=== PATIENT | male | born 1980 | race Caucasian/White ===

== ENCOUNTER 2018-12-17 08:12 | Inpatient (IN) | payer OTHER ==
[~2018-12-17] VITALS: Ht 177.8 cm; Wt 76.2 kg
--- NOTE | 2018-12-17 21:21 | NUR ---
PRE-ADMISSION NOTE Pt was seen in the intake office. Pt is intoxicated and not exhibiting any s/s of withdrawal. Pt has alcoholic odor on his breath. Pt is accompanied by his sister and his long time friend. Pt's V/S are WNL. Pt's has a steady gait. Pt is acceptable for admission to [facility].
[2018-12-17] MEDS ORDERED: SRC ALCOHOL WITHDRAWAL ADMITTING PROTOCOL XX PRN (22:00)
[2018-12-17] MEDS ORDERED: IBUPROFEN 600 MG TABLET PO PRN (22:00)
[2018-12-17] MEDS ORDERED: LORAZEPAM 0.5 MG TABLET PO PRN ×2 (22:00)
[2018-12-17] MEDS ORDERED: SRC BENZO WITHDRAWAL ADMITTING PROTOCOL XX PRN (22:00)
[2018-12-17] MEDS ORDERED: LORAZEPAM 2 MG/1 ML VIAL IM PRN (22:00)
[2018-12-17] MEDS ORDERED: ONDANSETRON 4 MG/2 ML VIAL IM PRN (22:00)
[2018-12-17] MEDS ORDERED: CLONIDINE HCL 0.1 MG TABLET PO PRN (22:00)
[2018-12-17] MEDS ORDERED: THIAMINE HCL 200 MG/2 ML VIAL IM ONE (22:00)
[2018-12-17] MEDS ORDERED: LOPERAMIDE HCL 2 MG CAPSULE PO PRN ×2 (22:00)
[2018-12-17] MEDS ORDERED: ONDANSETRON ODT 4 MG TAB.RAPDIS SL PRN (22:00)
[2018-12-17] MEDS ORDERED: HYDROXYZINE PAMOATE 25 MG CAPSULE PO PRN (22:00)
[2018-12-17] MEDS ORDERED: MAGNESIUM HYDROXIDE 30 ML LIQUID UDC PO PRN (22:00)
[2018-12-17] MEDS ORDERED: MAG HYDROX/AL HYDROX/SIMETH 30 ML LIQUID UDC PO PRN (22:00)
[2018-12-17] MEDS ORDERED: MIRALAX 17 GM POWD.PACK PO PRN (22:00)
[2018-12-17] MEDS ORDERED: diphenhydrAMINE 50 MG CAPSULE PO PRN (22:00)
--- NOTE | 2018-12-17 22:23 | NUR ---
ADMISSION NOTE Pt is a 38 y/o male who is being admitted for medically supervised withdrawal from ETOH and Benzodiazepines. Pt is intoxicated and currently not experiencing any s/s of withdrawal. Pt has an odor of alcohol on his breath. His speech is tangential, rapid, and slurred. He is also flushed and has avoidant eye contact. Pt is A/O to person, place, time, and purpose. He states that withdrawal symptoms typically include irritability, anger, and anxiety. He denies all other symptoms. He denies any cardiac complications due to withdrawal. He denies ever having a withdrawal induced seizure. He, however, does state that he has several blackouts while drinking. The last one in October of 2018. Pts substance use is as follows: 1. ETOH (Beer): 20 beers daily for the past 10 days. His last drink was on 12/17/18 @ 1900. He finished 20 beers throughout the course of the day. His first drink was 15 yrs ago. 2. Benzodiazepines (Xanax): 2mg as needed for the past yr. His last use was 12/17/18 @ 1700 of 2mg. He first began using 1 yr ago. He states that he is seeking treatment today because he is on the verge of losing everything. Im going to lose everything if I dont stop drinking. Im killing my parents and my job has threatened to fire me. He states I dont know why I torture myself this way. Pt states that he uses drinking as a coping mechanism. It used to be fun, but now it is not. It has become a crutch. This is the first time that he has attempted to go through treatment. I thought I could do this on my own, but I realize I cant. He doesnt believe he needs to stop using Xanax because he, doesnt use it very often. He states that he is willing to do whatever it takes to stop drinking and maintain his sobriety. I want to be a better person and good example for my kids. Pt states that he has a home AA group, but believes his old sponsor has relapsed himself. He also states that he wants to go treatment after detoxing. I want to do an outpatient program where I can still maintain my job. He was brought to detox by his sister and his longtime friend. Pt states that he has a good support system. My family knows what to do, my older brother battled and overcame addiction. V/S: P:82, RR:18, SPO2:97, BP:1356/81. Pt denies pain. HR is strong and regular. Respirations are unlabored and even. Lung sounds are clear. Skin is intact. NKA. He is 510 and 168lbs. He follows a regular diet at home. He is a former smoker who quit 15 yrs ago. He has medical health h/o a concussion in August of 2018. He also had Angina in 2014 and was hospitalized. Pt has a mental health h/o Anxiety and Depression. Pt denies ever having any S/I or H/I. Pt doesnt currently have a PCP or psychiatrist. He was educated on the plan of care including detox, group and individual therapy sessions, and discharge planning. He was encouraged to be open and honest with the staff regarding how he is feeling and what his symptoms are. He was also given verbal support for his choice in recovery.
[2018-12-17] MEDS ORDERED: ALPR2TAB7 PO (22:45)
[2018-12-17 23:39] LABS: *AMPHETAMINE, URINE NEGATIVE (NEGATIVE); *BARBITURATE, URINE NEGATIVE (NEGATIVE); *CANNABINOID, URINE NEGATIVE (NEGATIVE); *COCCAINE, URINE NEGATIVE (NEGATIVE); *OPIATE, URINE NEGATIVE (NEGATIVE); *PHENCYCLIDINE SCREEN,URINE NEGATIVE (NEGATIVE)
[2018-12-18] VITALS: BP 124/79
--- NOTE | 2018-12-18 | NUR ---
CIWA DEFERRED Pt is in bed w/ his eyes closed. Pt's respirations are unlabored and even.
[2018-12-18 00:13] LABS: BASOPHILS % (AUTO) 1.3 % (0.0-2.0); EOSINOPHILS # (AUTO) 0.1 K/uL (0.0-0.7); EOSINOPHILS % (AUTO) 3.1 % (0.0-7.0); HEMATOCRIT 41.5 % (36.7-47.1); HEMOGLOBIN 14.4 g/dL (12.5-16.3); LYMPHOCYTES # (AUTO) 1.7 K/uL (20.0-40.0); LYMPHOCYTES % (AUTO) 47.1 % (20.5-51.5); MEAN CORPUSCULAR HEMOGLOBIN 29.6 uug (23.8-33.4); MEAN CORPUSCULAR HGB CONC 35 g/dL (32.5-36.3); MEAN CORPUSCULAR VOLUME 85.3 fL (73.0-96.2); MONOCYTES # (AUTO) 0.3 K/uL (2.0-10.0); MONOCYTES % (AUTO) 8.7 % (0.0-11.0); NEUTROPHILS # (AUTO) 1.5 K/uL (1.8-8.9); NEUTROPHILS % (AUTO) 39.8 % (38.5-71.5); PLATELET COUNT (AUTO) 131 K/uL (152-348); RED BLOOD CELL COUNT(AUTO) 4.86 MIL/uL (4.06-5.63); WHITE BLOOD COUNT (AUTO) 3.7 K/uL (3.6-10.2)
[2018-12-18 00:23] LABS: BILIRUBIN,TOTAL 0.5 mg/dL (0.2-1.0); CREATININE 1.2 mg/dL (0.6-1.3); MAGNESIUM 1.8 mg/dL (1.8-2.4); POTASSIUM 2.9 mmol/L (3.5-5.1); TOTAL PROTEIN, SERUM 7.4 g/dL (6.4-8.2)
[2018-12-18 00:32] LABS: THYROID STIMULATING HORMONE 2.396 mIU/mL (0.358-3.740)
[2018-12-18] MEDS ORDERED: ASPI1TAB2 PO (00:42)
[2018-12-18] MEDS ORDERED: ALPR2TAB2 PO (00:42)
[2018-12-18] MEDS ORDERED: [UNRECOGNIZED DRUG - CODE] OP (00:42)
[2018-12-18] MEDS ORDERED: CLOT10TR MM (00:42)
[2018-12-18] MEDS ORDERED: POTASSIUM CHLORIDE 20 MEQ TAB.PRT.SR PO ONE ×4 (00:45→09:45)
[2018-12-18 04:00] VITALS: BP 97/56
--- NOTE | 2018-12-18 04:00 | NUR ---
CIWA DEFERRED. V/S ASSESSED Pt is in bed w/ his eyes closed. Pt's respirations are unlabored and even.
--- NOTE | 2018-12-18 07:15 | NUR ---
END OF SHIFT NOTE Endorsed pt to oncoming nurse. Pt is a 38 y/o male A/O to person, place, time, and purpose. Pt was admitted for medically supervised withdrawal from ETOH and Benzodiazepines. Pt was intoxicated upon admission. Pt denies all s/s of withdrawal and did not exhibit any either. Pt denies any S/I or H/I. No PRN medications were given during current shift. Pts fluid intake was 1051ml and he slept for 8 hrs. CIWA was deferred and V/S remained WNL. Call light is within reach.
--- NOTE | 2018-12-18 07:51 | NUR ---
START OF SHIFT Received report from night nurse, 38 year male admitted for ETOH/Benzo Withdrawal. Patient currently not on any taper but PRN'S available for s/s of withdrawal. Per endorsement patient did not receive any PRN'S, slept for 7 hours. Received patient asleep responsive to verbal and tactile stimuli. Breathing normal no SOB noted. Skin warm and dry to touch Patient is due for schedule medications. Educated patient on current plan of the day and medications regimen. Patient verbalized understanding. All safety measures in place, Will cont to monitor.
[2018-12-18 08:00] VITALS: BP 108/61
[2018-12-18] MEDS ORDERED: MULTIVITAMINS,THERAPEUTIC TABLET PO SCH (09:00)
[2018-12-18] MEDS ORDERED: THIAMINE HCL 100 MG TABLET PO SCH (09:00)
[2018-12-18] MEDS ORDERED: TUBERCULIN,PURIF.PROT.DERIV. 5 TU/0.1 ML TEST ID ONE (09:00)
[2018-12-18] MEDS ORDERED: FOLIC ACID 1 MG TABLET PO SCH (09:00)
--- NOTE | 2018-12-18 09:39 | NUR ---
POTASSIUM REPLACED Patient potassium level noted 2.9L. Which was replaced by [id number] MEQ PO as ordered. Will cont to monitor.
--- NOTE | 2018-12-18 09:44 | NUR ---
PRN ATIVAN CIWA SCORE NOTED-13, Patient reported increased in anxiety, agitation,restless, bilateral hand tremors, sweats. PRN Ativan 1mg PO administered as ordered. Will cont to monitor and reassess for effectiveness.
--- NOTE | 2018-12-18 10:44 | NUR ---
ATIVAN REASSESSMENT Patient reported Ativan was effective in controlling s/s of withdrawal. CIWA score noted -10. Will cont to monitor.
[2018-12-18 12:00] VITALS: BP 115/80
[2018-12-18 16:00] VITALS: BP 122/84
--- NOTE | 2018-12-18 16:31 | NUR ---
AMA NOTE Patient left AMA, Patient refused to comply with treatment. Patient was educated about the risk ans consequences of leaving AMA, patient verbalized understanding but was adamant about leaving. Multiple staff members including doctors, patient advocates and nurses attempt to reason with patient without any success. Vital sign WNL, skin intact, patient denied any SI/HI. Patient was given a list of community recourses,AMA forms explained and signs. All belongings returned to patient including his home medications. Patient left facility AMA on 12/18/18 at 1400. Patient psychiatrist notified. Addendum: 12/18/18 at 1704 by NINA THOMPSON [facility]-Patient left the facility at 1631 on12/18/18.
[2018-12-19 10:09] LABS: HEPATITIS B SURFACE AG Negative (Negative)
== END 2018-12-18 16:31 | disposition left against medical advice (07) | DRG 894 ==
LOC: SRC 20:47
PROVIDERS: ADMIT Family Medicine Addiction Medicine; ATTEND Family Medicine Addiction Medicine
PROC: HZ2ZZZZ Detoxification Services for Substance Abuse Treatment (ICD-10-PCS; principal; 2018-12-17)
DX: F10.230 Alcohol dependence with withdrawal, uncomplicated (principal); Y90.6 Blood alcohol level of 120-199 mg/100 ml; D69.6 Thrombocytopenia, unspecified; Z87.820 Personal history of traumatic brain injury; Z87.891 Personal history of nicotine dependence; Z81.3 Family history of other psychoactive substance abuse and dependence; Z79.899 Other long term (current) drug therapy; F41.1 Generalized anxiety disorder; R74.0 Nonspecific elevation of levels of transaminase and lactic acid dehydrogenase [LDH]; F32.9 Major depressive disorder, single episode, unspecified; F13.239 Sedative, hypnotic or anxiolytic dependence with withdrawal, unspecified
CPT/HCPCS: 36415; 80307; 80346; 83690; 83735; 84443; 85025; 86592; 86705; 86803; 87340; 87806; A4663; G0480